=== PATIENT | female | born 1955 | race African-American/Black ===

== ENCOUNTER 2021-12-06 12:39 | Emergency (ER) | payer OTHER, MEDICARE ==
[2021-12-06 14:01] VITALS: BP 164/74; PULSE 66; TEMP 98.6; BMI 41.5
[2021-12-06] MEDS ORDERED: LIDOCAINE 5% TOPICAL PATCH TP ONE ×2 (17:01→18:56)
[2021-12-06] MEDS ORDERED: KETOROLAC TROMETHAMINE 30 MG/1 ML VIAL IM ONE (17:01)
[2021-12-06] MEDS ORDERED: LIDOCAINE 5% TOPICAL PATCH ONE (17:05)
[2021-12-06] MEDS ORDERED: KETOROLAC TROMETHAMINE 30 MG/1 ML VIAL ONE (17:05)
[2021-12-06] MEDS ORDERED: LIDOCAINE PATCH REMOVAL MC SCH ×2 (22:00)
== END 2021-12-06 19:04 | disposition home or self-care (01) ==
LOC: JERFT 12:39 → JER 12:39 → JERFT 19:04
PROC: 3E023GC Introduction of Other Therapeutic Substance into Muscle, Percutaneous Approach (ICD-10-PCS; principal; 2021-12-06)
DX: S16.1XXA Strain of muscle, fascia and tendon at neck level, initial encounter (principal); R10.9 Unspecified abdominal pain; V49.50XA Passenger injured in collision with unspecified motor vehicles in traffic accident, initial encounter
CPT/HCPCS: 0241U-QW; 72100-TC-FY; 72125-TC; 99284-25